=== PATIENT | female | born 1970 | race Caucasian/White ===

== ENCOUNTER 2020-07-21 17:53 | Emergency (ER) | payer OTHER ==
[2020-07-21 18:02] VITALS: TEMP 98.4
[2020-07-21 19:28] LABS: Basophils # (A) 0.1 k/uL (0-0.2); Basophils % (A) 0 %; Eosinophils # (A) 0.1 k/uL (0-0.7); Eosinophils % (A) 1 %; HCT 41.9 % (34.0-46.0); HGB 14.5 gm/dL (11.4-16.0); Lymphocytes # (A) 1.2 k/uL (1.0-4.8); Lymphocytes % (A) 10 %; MCH 30.5 pg (25.0-35.0); MCHC 34.6 g/dL (31.0-37.0); MCV 88.2 fL (80.0-100.0); Mean Platelet Volume 7.5; Monocytes # (A) 0.5 k/uL (0-1.0); Monocytes % (A) 4 %; Neutrophils # (A) 10.6 k/uL (1.3-7.7); Neutrophils % (A) 85 %; Platelet Count 223 k/uL (150-450); RBC 4.74 m/uL (3.80-5.40); RDW 12.5 % (11.5-15.5); WBC 12.5 k/uL (3.8-10.6)
[2020-07-21 19:38] LABS: INR 0.9 (<1.2); Partial Thromboplastin Time 24.6 sec (22.0-30.0); Prothrombin Time 9.6 sec (9.0-12.0)
[2020-07-21 19:43] LABS: African American GFR (CKD) >90 (>60 ml/min/1.73 sqM); Anion Gap 7 mmol/L; Blood Urea Nitrogen 10 mg/dL (7-17); Calcium 9.5 mg/dL (8.4-10.2); Carbon Dioxide 26 mmol/L (22-30); Chloride 104 mmol/L (98-107); Glucose 105 mg/dL (74-99); Non-African American GFR(CKD) >90 (>60 ml/min/1.73 sqM); Potassium 4.8 mmol/L (3.5-5.1); Sodium 137 mmol/L (137-145); Total Protein 7.6 g/dL (6.3-8.2)
[2020-07-21 19:44] LABS: ALT 57 U/L (4-34); AST 99 U/L (14-36); Albumin 4.7 g/dL (3.5-5.0); Alkaline Phosphatase 69 U/L (38-126); Total Bilirubin 0.2 mg/dL (0.2-1.3)
--- NOTE | 2020-07-21 20:20 | XR ---
EXAMINATION TYPE: XR chest 1V DATE OF EXAM: 07/21/2020 COMPARISON: NONE HISTORY: Chest pain TECHNIQUE: FINDINGS: Heart and mediastinum are normal. Lungs are clear. Diaphragm is normal. Bony thorax appears normal. There are chest leads. IMPRESSION: Normal chest
[2020-07-21] MEDS: SODIUM CHLORIDE 0.9% 1,000 ML IV ONE (20:45)
[2020-07-21] MEDS: FAMOTIDINE 20 MG/2 ML VIAL IV STA (20:46)
--- NOTE | 2020-07-21 21:21 | US ---
EXAMINATION TYPE: US abdomen limited DATE OF EXAM: 07/21/2020 COMPARISON: NONE CLINICAL HISTORY: RUQ pain; back pain; pressure. Abdomen pain and N/V x 1 day EXAM MEASUREMENTS: Liver Length: 17.9 cm Gallbladder Wall: 0.2 cm CBD: 0.5 cm Right Kidney: 10.4 x 5.3 x 5.1 cm Pancreas: wnl Liver: measures in upper limits of normal, mildly heterogeneous Gallbladder: mildly hydropic, multiple small mobile echogenic foci Evidence for sonographic Kingston's sign: no CBD: wnl Right Kidney: 1.0 x 0.6 x 0.9cm hyperechoic area mid pole IMPRESSION: Multiple gallstones. No dilated ducts. Gallbladder is large and could relate to gallbladd er dysfunction.
--- NOTE | 2020-07-21 21:49 | ED ---
General Adult HPI - General Chief complaint: Chest Pain Stated complaint: chest pain Time Seen by Provider: 07/21/20 19:39 Source: patient Mode of arrival: wheelchair Limitations: no limitations - History of Present Illness Initial comments: 50-year-old female patient presents to the emergency department today for evaluation of chest pain, shortness of breath, nausea. Patient states symptoms started a couple of hours ago. States it felt like intense chest tightness, like someone punched her in the "solar plexus". States the pain did radiate through to the back. States she did become nauseated and had one episode of vomiting. States that the pain is worsened which took a deep breath. She does report some upper abdominal discomfort as well. Denies any fever or chills. Denies cough or congestion. Denies any personal cardiac history though does have family history of cardiac disease. Has a history of smoking, quit 4 years ago. Does not take any medications currently. No previous abdominal surgeries. Denies any constipation or diarrhea. Patient denies any recent rash, numbness, tingling, dizziness, weakness, hematuria, dysuria, urinary urgency, urinary frequency, headache, visual changes, or any other complaints. - Related Data Allergies Allergy/AdvReac Type Severity Reaction Status Date / Time No Known Allergies Allergy Verified 07/21/20 18:02 Review of Systems ROS Statement: Those systems with pertinent positive or pertinent negative responses have been documented in the HPI. ROS Other: All systems not noted in ROS Statement are negative. Past Medical History Past Medical History: No Reported History History of Any Multi-Drug Resistant Organisms: None Reported Past Surgical History: Tubal Ligation Past Psychological History: No Psychological Hx Reported Smoking Status: Never smoker Past Alcohol Use History: None Reported Past Drug Use History: None Reported General Exam Limitations: no limitations General appearance: alert, in no apparent distress, other (This is a well- developed, well-nourished adult female patient in no acute distress. Vital signs upon presentation are temperature 98.4F, pulse 83, respirations 20, blood pressure 144/86, pulse ox 98% on room air.) Eye exam: Present: normal appearance, PERRL, EOMI. Absent: scleral icterus, conjunctival injection, periorbital swelling ENT exam: Present: normal exam, normal oropharynx, mucous membranes moist Respiratory exam: Present: normal lung sounds bilaterally. Absent: respiratory distress, wheezes, rales, rhonchi, stridor Cardiovascular Exam: Present: regular rate, normal rhythm, normal heart sounds. Absent: systolic murmur, diastolic murmur, rubs, gallop, clicks GI/Abdominal exam: Present: soft, tenderness (Midepigastric and right upper qu adrant tenderness), normal bowel sounds. Absent: distended, guarding, rebound, rigid Neurological exam: Present: alert, oriented X3, CN II-XII intact Psychiatric exam: Present: normal affect, normal mood Skin exam: Present: warm, dry, intact, normal color. Absent: rash Course Vital Signs 07/21/20 07/21/20 17:57 22:23 Temperature 98.4 F Pulse Rate 83 75 Respiratory 20 18 Rate Blood Pressure 144/86 142/75 O2 Sat by Pulse 98 99 Oximetry EKG Findings - EKG Comments: EKG Findings:: EKG obtained at 1806 shows normal sinus rhythm with ventricular rate of 79, P return of a 166, QRS duration 94, QT 392, QTc 449. No evidence of ST elevation or depression. Medical Decision Making - Medical Decision Making 50-year-old female patient presents to emergency department today for evaluation of chest tightness, abdominal discomfort, nausea, vomiting, shortness of breath. Physical examination did reveal midepigastric right upper quadrant tenderness. Lungs are clear to auscultation with good air movement. EKG was normal sinus rhythm with no ST elevation or depression. Chest x-ray negative. Labs reviewed and did reveal white blood cell count at 12.5, neutrophils 10.6. AST 99, ALT 57. Troponin negative. I did do ultrasound of the right upper quadrant which did show multiple gallstones and enlarged gallbladder consistent with bladder dysfunction. I did discuss findings with the patient. She states all symptoms have resolved and she does want to go home. She is given instructions to follow-up with her primary care physician to discuss possible referral to cardiology for stress testing. She is also instructed to follow-up with surgery outpatient for further evaluation of her gallbladder. Return parameters were discussed in detail. She verbalizes understanding and agrees this plan. Case discussed with my attending Dr. Albert. - Lab Data Result diagrams: 07/21/20 19:13 07/21/20 19:13 Lab Results 07/21/20 07/21/20 07/21/20 Range/Units 19:13 19:13 19:13 WBC 12.5 H (3.8-10.6) k/uL RBC 4.74 (3.80-5.40) m/uL Hgb 14.5 (11.4-16.0) gm/dL Hct 41.9 (34.0-46.0) % MCV 88.2 (80.0-100.0) fL MCH 30.5 (25.0-35.0) pg MCHC 34.6 (31.0-37.0) g/dL RDW 12.5 (11.5-15.5) % Plt Count 223 (150-450) k/uL MPV 7.5 Neutrophils % 85 % Lymphocytes % 10 % Monocytes % 4 % Eosinophils % 1 % Basophils % 0 % Neutrophils # 10.6 H (1.3-7.7) k/uL Lymphocytes # 1.2 (1.0-4.8) k/uL Monocytes # 0.5 (0-1.0) k/uL Eosinophils # 0.1 (0-0.7) k/uL Basophils # 0.1 (0-0.2) k/uL PT 9.6 (9.0-12.0) sec INR 0.9 (<1.2) APTT 24.6 (22.0-30.0) sec Sodium 137 (137-145) mmol/L Potassium 4.8 (3.5-5.1) mmol/L Chloride 104 (98-107) mmol/L Carbon Dioxide 26 (22-30) mmol/L Anion Gap 7 mmol/L BUN 10 (7-17) mg/dL Creatinine 0.64 (0.52-1.04) mg/dL Est GFR (CKD-EPI)AfAm >90 (>60 ml/min/1.73 sqM) Est GFR (CKD-EPI)NonAf >90 (>60 ml/min/1.73 sqM) Glucose 105 H (74-99) mg/dL Calcium 9.5 (8.4-10.2) mg/dL Total Bilirubin 0.2 (0.2-1.3) mg/dL AST 99 H (14-36) U/L ALT 57 H (4-34) U/L Alkaline Phosphatase 69 (38-126) U/L Troponin I (0.000-0.034) ng/mL Total Protein 7.6 (6.3-8.2) g/dL Albumin 4.7 (3.5-5.0) g/dL 07/21/20 Range/Units 19:13 WBC (3.8-10.6) k/uL RBC (3.80-5.40) m/uL Hgb (11.4-16.0) gm/dL Hct (34.0-46.0) % MCV (80.0-100.0) fL MCH (25.0-35.0) pg MCHC (31.0-37.0) g/dL RDW (11.5-15.5) % Plt Count (150-450) k/uL MPV Neutrophils % % Lymphocytes % % Monocytes % % Eosinophils % % Basophils % % Neutrophils # (1.3-7.7) k/uL Lymphocytes # (1.0-4.8) k/uL Monocytes # (0-1.0) k/uL Eosinophils # (0-0.7) k/uL Basophils # (0-0.2) k/uL PT (9.0-12.0) sec INR (<1.2) APTT (22.0-30.0) sec Sodium (137-145) mmol/L Potassium (3.5-5.1) mmol/L Chloride (98-107) mmol/L Carbon Dioxide (22-30) mmol/L Anion Gap mmol/L BUN (7-17) mg/dL Creatinine (0.52-1.04) mg/dL Est GFR (CKD-EPI)AfAm (>60 ml/min/1.73 sqM) Est GFR (CKD-EPI)NonAf (>60 ml/min/1.73 sqM) Glucose (74-99) mg/dL Calcium (8.4-10.2) mg/dL Total Bilirubin (0.2-1.3) mg/dL AST (14-36) U/L ALT (4-34) U/L Alkaline Phosphatase (38-126) U/L Troponin I <0.012 (0.000-0.034) ng/mL Total Protein (6.3-8.2) g/dL Albumin (3.5-5.0) g/dL - Radiology Data Radiology results: report reviewed, image reviewed One view x-ray of the chest is obtained. Report was reviewed in its entirety. Impression by Dr. Barajas shows normal chest. Ultrasound of the right upper quadrant was obtained. Report was reviewed in its entirety. Impression by Dr. Barajas shows multiple gallstones. No dilated ducts. Gallbladder is large and could relate to gallbladder dysfunction. Disposition Clinical Impression: Chest pain, Abdominal pain, Cholelithiasis, Dysfunctional gallbladder Disposition: HOME SELF-CARE Condition: Good Instructions (If sedation given, give patient instructions): Chest Pain (ED), Gallstones (ED), Abdominal Pain (ED) Additional Instructions: Follow low-fat diet. Follow-up through primary care physician for recheck in 1- 2 days. Discuss possible follow-up with cardiology for stress test. Call surgeon for an appointment due to gallbladder dysfunction and gallstones. Return for any new, worsening, or concerning symptoms. Is patient prescribed a controlled substance at d/c from ED?: No Referrals: Vladislav Rojas DO [Primary Care Provider] - 1-2 days Mukesh Arguelles DO [Doctor of Osteopathic Medicine] - 1-2 days Time of Disposition: 21:51
[2020-07-21 22:23] VITALS: BP 142/75; PULSE 75; RESP 18
== END 2020-07-21 22:36 | disposition home or self-care (01) ==
LOC: EC 17:53
DX: K80.20 Calculus of gallbladder without cholecystitis without obstruction (principal); R07.89 Other chest pain; R06.02 Shortness of breath
CPT/HCPCS: 36415; 71045; 76705; 80053; 84484; 85025; 85610; 85730; 93005; 96374; 99285

== ENCOUNTER → 2020-09-11 | Outpatient (CLI) | payer OTHER ==
[2020-09-11 14:48] VITALS: BP 122/82; PULSE 71; RESP 16; TEMP 98.9
--- NOTE | 2020-09-11 15:45 | P.GSHP ---
History of Present Illness H&P Date: 09/11/20 Chief Complaint: invasive ductal cancer left breast Lucero is a 50 year old white female seen in consultation for Dr. Rojas with a diagnosis of a biopsy-proven invasive ductal carcinoma at 2 sites in the left breast. The patient was able to feel this approximately 2 months ago. The patient was due for her annual exam and a bilateral mammogram was performed. In the left breast 2 areas of concern were identified one at 9:00 and one at 8:00. Both areas revealed invasive ductal carcinoma grade 2. These are ER/IN positive HER-2/la equivocal Had a mammogram for approximately 5 years. She is not complaining of any nipple discharge. Since the biopsy she has some mild dimpling at the site of the biopsy. She had never had a breast biopsy in the past. She has no history of any trauma or infection in the breast. Caffeine: 2 cups of coffee per day/ diet pepsi 1 liter/day Nicotine: Stopped 4 years ago he used to smoke a pack per day for 3o years chocolate: none BCP: 14 years hormones: none Family history: paternal grandfather: lung cancer smoker History: Menarche: 13 [id number], first born at 31; bresat fed: yes menopause: Continue regular rate Surgical history: tubaligation gallbladder to be removed on Medical history: Negative Social history: Nicotine: Former smoker stopped 40 years ago Alcohol: Stopped 5 years ago Drugs:none - Constitutional Constitutional: Denies chills, Denies fever - EENT Eyes: bilateral blurred vision, denies pain Ears: deny: decreased hearing, tinnitus Ears, nose, mouth and throat: Reports headache, Denies sore throat - Breasts Breasts: bilateral: as per HPI - Cardiovascular Cardiovascular: Denies chest pain, Denies shortness of breath - Respiratory Respiratory: Reports as per HPI - Gastrointestinal Comment: gallbladder disease Gastrointestinal: Denies abdominal pain, Denies diarrhea, Denies nausea, Denies vomiting - Genitourinary (Female) Genitourinary: Denies dysuria, Denies hematuria - Menstruation Menstruation: Reports period normal - Musculoskeletal Musculoskeletal: Denies myalgias - Integumentary Comment: psoriasis Integumentary: Denies pruritus, Denies rash - Neurological Neurological: Denies numbness, Denies weakness - Psychiatric Psychiatric: Denies anxiety, Denies depression - Endocrine Endocrine: Denies fatigue, Denies weight change - Hematologic/Lymphatic Comment: none - Allergic/Immunologic Allergic/Immunologic: Reports as per HPI Past Medical History Past Medical History: Thyroid Disorder Additional Past Medical History / Comment(s): psoriasis; elevated liver enzyme level; History of Any Multi-Drug Resistant Organisms: None Reported Past Surgical History: Tubal Ligation Past Anesthesia/Blood Transfusion Reactions: No Reported Reaction Past Psychological History: No Psychological Hx Reported Smoking Status: Former smoker Past Alcohol Use History: None Reported Additional Past Alcohol Use History / Comment(s): Former smoker Past Drug Use History: None Reported Medications and Allergies Home Medications Medication Instructions Recorded Confirmed Type Aspirin/Acetaminophen/Caffeine 1 each PO DAILY PRN 09/11/20 09/11/20 History [Excedrin Extra Strength Caplet] Allergies Allergy/AdvReac Type Severity Reaction Status Date / Time No Known Allergies Allergy Verified 09/11/20 14:37 Surgical - Exam Vital Signs Temp Pulse Resp BP Pulse Ox 98.9 F 71 16 122/82 97 09/11/20 14:42 09/11/20 14:42 09/11/20 14:42 09/11/20 14:42 09/11/20 14:42 BMI 36 - General well developed, well nourished, no distress - Eyes normal ocular movement - ENT no hearing loss, no congestion - Neck no masses, trachea midline - Respiratory normal respiratory effort, clear to auscultation - Cardiovascular Heart Sounds: normal: S1, S2 - Abdomen Abdomen: soft, non tender, no guarding, no rigid, no rebound - Integumentary normal turgor - Neurologic no disoriented, no combative - Musculoskeletal normal gait - Psychiatric oriented to time, oriented to person, oriented to place, speech is normal, memory intact Breast Exam: BRA: 38C inspection: Bilateral grade 3 ptosis Palpation: Right breast: Multiple positional exam fibrocystic changes no dominant masses or nodules of concern Axilla: No adenopathy of concern Left breast: Ecchymosis related to recent core biopsy/nodularity at the inner midportion of the breast, no other dominant masses or nodules of concern Left axilla: No adenopathy of concern Results Mammogram reviewed with Dr. Valencia Assessment and Plan Assessment: Impression: Multifocal left breast cancer/both stage IA invasive ductal Plan: 1. Appointment with plastic surgery 2. Genetic counseling 3. Presentation of case at tumor board The patient has been given options of bilateral mastectomy plus or minus reconstruction to lumpectomy and sentinel node biopsy and radiation therapy. At this time she is most interested in a mastectomy. She is going to have genetic testing performed to determine if she would like to have bilateral mastectomies. We have also discussed sentinel node biopsy possible axillary node dissection. She understands and will follow up in 2 weeks after seeing the genetic counselor and an appointment with plastic surgery. The patient is scheduled to undergo a cholecystectomy in 2 days. She is going to proceed with this. I seen the patient in conjunction with her mother, sister, and daughter. Cc: Dr. Rojas
== END | disposition home or self-care (01) ==
LOC: WWCWWP 14:15
PROVIDERS: ATTEND Surgery
DX: Z53.9 Procedure and treatment not carried out, unspecified reason (principal)

== ENCOUNTER → 2020-09-27 | Outpatient (CLI) | payer OTHER ==
[2020-09-27 13:19] VITALS: BP 138/92; PULSE 67; RESP 18; TEMP 99.2
--- NOTE | 2020-09-27 13:25 | P.PN ---
Subjective Progress Note Date: 09/27/20 Principal diagnosis: left breast cancer Lucero is a 50 year old white female seen in consultation for Dr. Rojas with a diagnosis of a biopsy-proven invasive ductal carcinoma at 2 sites in the left breast. The patient was able to feel this approximately 2 months ago. The patient was due for her annual exam and a bilateral mammogram was performed. In the left breast 2 areas of concern were identified one at 9:00 and one at 8:00. Both areas revealed invasive ductal carcinoma grade 2. These are ER/CT positive HER-2/la equivocal Had a mammogram for approximately 5 years. She is not complaining of any nipple discharge. Since the biopsy she has some mild dimpling at the site of the biopsy. She had never had a breast biopsy in the past. She has no history of any trauma or infection in the breast. The patient's case was presented at tumor board. There was discussion about genetic testing but the patient opted not to have this performed. The patient was seen by Dr. Roberto from plastic surgery and is planning to proceed with a bilateral skin sparing mastectomy and subpectoral implant reconstruction. She will have her left breast sentinel node biopsy performed with possible axillary node dissection. Caffeine: 2 cups of coffee per day/ diet pepsi 1 liter/day Nicotine: Stopped 4 years ago he used to smoke a pack per day for 3o years chocolate: none BCP: 14 years hormones: none Family history: paternal grandfather: lung cancer smoker History: Menarche: 13 [id number], first born at 31; bresat fed: yes menopause: Continue regular rate Surgical history: tubaligation gallbladder to be removed on Medical history: Negative Social history: Nicotine: Former smoker stopped 40 years ago Alcohol: Stopped 5 years ago Drugs:none - Constitutional Constitutional: Denies chills, Denies fever - EENT Eyes: bilateral blurred vision, denies pain Ears: deny: decreased hearing, tinnitus Ears, nose, mouth and throat: Reports headache, Denies sore throat - Breasts Breasts: bilateral: as per HPI - Cardiovascular Cardiovascular: Denies chest pain, Denies shortness of breath - Respiratory Respiratory: Reports as per HPI - Gastrointestinal Comment: gallbladder disease Gastrointestinal: Denies abdominal pain, Denies diarrhea, Denies nausea, Denies vomiting - Genitourinary (Female) Genitourinary: Denies dysuria, Denies hematuria - Menstruation Menstruation: Reports period normal - Musculoskeletal Musculoskeletal: Denies myalgias - Integumentary Comment: psoriasis Integumentary: Denies pruritus, Denies rash - Neurological Neurological: Denies numbness, Denies weakness - Psychiatric Psychiatric: Denies anxiety, Denies depression - Endocrine Endocrine: Denies fatigue, Denies weight change - Hematologic/Lymphatic Comment: none - Allergic/Immunologic Allergic/Immunologic: Reports as per HPI Objective - Constitutional General appearance: Present: cooperative - EENT Eyes: Present: EOMI - Neck Neck: Present: normal ROM - Respiratory Respiratory: bilateral: CTA - Cardiovascular Heart sounds: normal: S1, S2 - Integumentary Integumentary: Present: normal turgor - Musculoskeletal Musculoskeletal: Present: gait normal - Psychiatric Psychiatric: Present: A&O x's 3, appropriate affect, intact judgment & insight - Additional findings Additional findings: Breast examination: Prior: 30 8C Inspection: Bilateral grade 3 ptosis Palpation: Right breast: Multiple positional exam fibrocystic changes no dominant masses or nodules of concern Right axilla: No adenopathy of concern Left breast: Ecchymosis related to recent core biopsy/nodularity in her midportion of the breast and other dominant masses or nodules of concern Left axilla: No adenopathy of concern Assessment and Plan Assessment: Impression: 1. Multifocal left breast cancer/both stage IA invasive ductal 2. Patient opted not to undergo genetic testing 3. Patient opted not to see lymphedema specialist preoperative from measurements 4. Patient did see plastic surgery Plan: 1. Bilateral skin sparing mastectomies with subpectoral implant reconstruction. Left breast sentinel node injection with sentinel node biopsy, possible axillary node dissection. The patient was seen in conjunction with her sister, mother, and daughter. The patient and her family had been given surgical options on prior visit and she has opted for the above. Risks of the procedure which include bleeding, infection, reaction to the anesthetic were discussed with the patient. She understands and wishes to proceed. She also understands that if the sentinel node injection does not travel. Would be injection of methylene blue and the risk of this could be skin necrosis. With axillary surgery the risks include but are not limited to bleeding, infection, reaction to the anesthetic. Additionally possible injury to the thoracodorsal and long thoracic nerves.
== END | disposition home or self-care (01) ==
LOC: WWCWWP 12:51
PROVIDERS: ATTEND Surgery
DX: C50.912 Malignant neoplasm of unspecified site of left female breast (principal); Z17.0 Estrogen receptor positive status [ER+]; Z87.891 Personal history of nicotine dependence

== ENCOUNTER 2020-10-16 07:13 | Observation (INO) | payer OTHER ==
[2020-10-10 16:09] VITALS: BMI 36.0
[~2020-10-16 07:13] MED LIST: DEXAMETHASONE SOD PHOSPHATE 4 MG/ML 1 ML VIAL IV ONE; MIDAZOLAM 2 MG/2 ML VIAL IV PRN; ONDANSETRON 4 MG/2 ML VIAL IVP ONE; Pre Op ABX Message 1 EACH MISC MISCELLANE ONE; SCOPOLAMINE 1.5MG/72HR PATCH TRANSDERM ONE
[2020-10-16] MEDS: LACTATED RINGERS 1,000 ML IV SCH (07:44)
[2020-10-16] MEDS ORDERED: ALPRAZolam 0.5 MG TAB ONE (07:48)
[2020-10-16] MEDS ORDERED: ALPRAZolam 0.5 MG TAB PO ONE (07:49)
[2020-10-16] MEDS: HEPARIN SODIUM,PORCINE/PF 5,000 UNIT/0.5 ML SYRINGE SQ PRN ×2 (08:20→08:30)
[2020-10-16] MEDS ORDERED: LIDOCAINE 1% INJ 10MG/ML (20 ML MDV) ONE (08:36)
[2020-10-16] MEDS ORDERED: fentaNYL (PF) 50 MCG/ML 2 ML AMP ONE (08:36)
[2020-10-16] MEDS ORDERED: MIDAZOLAM 2 MG/2 ML VIAL ONE (08:36)
[2020-10-16] MEDS ORDERED: SUCCINYLCHOLINE CHLORIDE 100 MG/5 ML SYR IV ONE (08:36)
[2020-10-16] MEDS ORDERED: ePHEDrine SULFATE/0.9% NACL/PF 50 MG/5 ML SYRINGE IV ONE (08:36)
[2020-10-16] MEDS ORDERED: PROPOFOL 10 MG/ML 20 ML VIAL IV ONE (08:36)
[2020-10-16] MEDS ORDERED: METHYLENE BLUE 10 MG/ML (10 ML VIAL) INJ ONE (09:10)
--- NOTE | 2020-10-16 09:14 | P.NAPBC ---
NAPBC Queries - NAPBC Queries Was patient's case review presented at [facility] tumor board? If no, comment.: Yes Was patient's pathology reviewed at [facility]? If no, comment.: Yes Was breast conservation surgery offered? If no, comment.: Yes Was sentinel node biopsy offered? If no, comment.: Yes Was diagnosis confirmed by percutaneous core biopsy? If no, comment.: Yes Is patient mastectomy patient?: Yes Was a preop referral to reconstructive surgeon offered?: Yes Clinical Stage: multifocal left breast cancer, stage IA
[2020-10-16] MEDS ORDERED: LACTATED RINGERS 1,000 ML IV ONE ×3 (10:54→13:27)
[2020-10-16] MEDS ORDERED: HYDROmorphone 1 MG/ML 1 ML SYRINGE IVP PRN (11:09)
[2020-10-16] MEDS ORDERED: NALOXONE 0.4 MG/ML 1 ML VIAL IV PRN (11:09)
--- NOTE | 2020-10-16 11:09 | P.OP ---
Date of Procedure: 10/16/20 Preoperative Diagnosis: Left breast multifocal invasive ductal carcinoma Postoperative Diagnosis: Same Procedure(s) Performed: Bilateral skin sparing mastectomy, left sentinel node mapping with methylene blue, sentinel node biopsy; bilateral subpectoral museum specialist placement by Dr. Roberto Anesthesia: RA Surgeon: Angely Grant Estimated Blood Loss (ml): 30 IV fluids (ml): 900 Pathology: other (Bilateral breast, left axillary lymph nodes) Condition: stable Disposition: floor Indications for Procedure: Left breast invasive ductal carcinoma Operative Findings: Dense breast tissue Description of Procedure: The patient is a 50-year-old white female diagnosed with multifocal left breast invasive ductal carcinoma. After discussion she has opted for bilateral skin sparing mastectomy with left sentinel node mapping/biopsy possible axillary node dissection. In addition she will have bilateral subpectoral museum specialist placement. In the preoperative area radioactive tracer was injected in the left periareolar region. The patient was brought to the operative suite and following induction of anesthesia the neoprobe was used to evaluate the left axilla. No increased radioactivity identified. Therefore, methylene blue tracer was placed. Approximately 10 mL of 50% methylene blue was injected into the periareolar area and the breast was massaged for approximately 5 minutes. Following this the right and left breast as well as the left axilla were prepped and draped in a sterile fashion. The right breast was approached initially. A circumareolar incision was made and circumferential skin flaps were developed. This was carried down to the pectoralis major muscle. The breast was removed from medial to lateral using electrocautery device as well as the Harmonic scalpel. A short suture was placed superiorly, and a long suture was placed laterally. Following this Dr. Roberto came into the room to place a subpectoral implant. The left breast was approached. Circumareolar incision was placed. Dissection was performed circumferentially down to the pectoralis major muscle. The breast was carefully dissected from the chest wall. The breast was removed and superiorly a short suture was placed and laterally a long suture was was placed for orientation. The left axilla was approached. Using the neoprobe minimal radioactivity was noted in the area. Two palpable nodes were identified and removed. One lymph node which had slight increased radioactivity was identified and removed. The 10 second count after removal on this was 366. The background axillary count was minimal. After we assured that hemostasis was attained Dr. Roberto proceeded to place a subpectoral museum specialist.
--- NOTE | 2020-10-16 11:59 | NM ---
EXAMINATION TYPE: NM sentinel node injection DATE OF EXAM: 10/16/2020 COMPARISON: NONE INDICATION: Abnormal mammogram. Informed consent was obtained. A timeout was performed. The area around the left nipple was cleansed with alcohol. In a single dose, a total of 511 uCi Emma hnetium 99m Tilmanocept was injected. The patient tolerated the procedure very well. IMPRESSIONS: 1. Successful injection for sentinel node evaluation.
[2020-10-16] MEDS: HYDROmorphone 0.5 MG/0.5 ML SYRINGE IVP PRN ×3 (12:19→13:10)
[2020-10-16] MEDS: ONDANSETRON 4 MG/2 ML VIAL IVP PRN (15:30)
[2020-10-16] MEDS: HEPARIN SODIUM,PORCINE/PF 5,000 UNIT/0.5 ML SYRINGE SQ SCH (17:18)
[2020-10-16] MEDS: METOCLOPRAMIDE 5 MG/ML 2 ML VIAL IVP SCH (18:27)
[2020-10-16] MEDS: DEXTROSE 5%-0.45% NACL 1,000 ML IV SCH (18:27)
--- NOTE | 2020-10-16 18:59 | OP ---
OPERATIVE REPORT DATE OF SURGERY: 10/16/2020. SURGEON: Deric Steele M.D. PREOPERATIVE DIAGNOSIS: 1. Acquired loss of right and left breast. 2. Left breast cancer. POSTOPERATIVE DIAGNOSIS: 1. Acquired loss, right and left breast. 2. Left breast cancer. OPERATIVE PROCEDURE: 1. Immediate reconstruction right breast following mastectomy with insertion of tissue coin machine assembler and subsequent outpatient expansion. 2. Immediate reconstruction left breast following mastectomy with insertion of tissue coin machine assembler and subsequent outpatient expansion. 3. Implantation of reconstructive graft for right and left breast reconstruction. OPERATIVE INDICATIONS: The patient is a 50-year-old female with left breast cancer. She was referred to my care, as the patient plans to undergo bilateral mastectomy procedures and desires immediate reconstruction with the surgery. The patient was seen and evaluated in consultation and has elected to proceed with a tissue coin machine assembler style reconstruction technique. She understands the staged nature of breast reconstructive surgery and specifics of potential risks and complications related to surgery, including but not limited to hematoma, seroma, postoperative infection, wound healing problems, among others. She has requested I perform today's surgery. OPERATIVE PROCEDURE SUMMARY: The patient was seen in the preoperative area, markings made, procedure reviewed, all questions answered. She was transported to the operating room, where she was placed in supine position. Following induction of general endotracheal anesthesia, the patient was prepped and draped in usual fashion. Dr. Grant and her surgical team then proceeded with the right simple mastectomy. Once that was completed, I entered the room and initiated the right breast reconstruction while Dr. Grant proceeded with the left simple mastectomy and left sentinel lymph node dissection procedures. The patient's right-sided mastectomy wound was open with no active bleeding. Pectoralis muscle was identified where it joined the chest wall laterally. Loose connective tissue divided with cautery here allowing entry into the potential plane between the pectorals major and minor muscles which was bluntly developed. Medial attachment fibers of the pectoralis major muscle to ribs were released with cautery but not sternal attachments. All inferior attachments to the rib structures were released with cautery. The pectoralis major muscle alone was not sufficient for reconstructive coverage of an coin machine assembler. Inferior medially rectus abdominis muscle and fascia inferolaterally external abdominal oblique muscle and fascia and laterally serratus anterior muscle and fascia were all elevated with cautery dissection through this approach. Once sufficient size submuscular reconstructive pocket was developed, hemostasis was maintained with cautery. The site was packed open with saline-moistened laparotomy sponges. Once the left-sided mastectomy and sentinel lymph node procedures were completed, I initiated left breast reconstruction. On the left side, the pectoralis major muscle was identified where it joined the chest wall. Loose areolar connective tissue divided with cautery here and then this allowed entry into the potential plane between the pectoralis major and minor muscles which was bluntly developed. Medial attachment fibers of the pectoralis major muscle to ribs and all inferior attachment fibers were released with cautery. Sternal attachments remained intact. Again, sufficient muscle coverage required recruitment of additional muscle groups. Inferomedially rectus abdominis muscle and fascia inferolaterally external abdominal oblique muscle and fascia and laterally serratus anterior muscle and fascia were all elevated through this approach. Once a sufficient sized submuscular pocket was created in a symmetrical fashion to the right, dissection stopped. Irrigation was performed. Hemostasis was excellent. The cavities were sized from each side. Minor adjustments were made for symmetry purposes. Tissue expanders were now opened onto the field after first changing gloves. Both expanders measured 450 mL in volume and reference #133 S-FX-12-T. There were made by the [employer], model 133 SFX. The serial number for the right-sided device was [id number] and the serial number for the left-sided device was [id number]. The expanders were only handled by the surgeon. All air was extracted from each coin machine assembler. Each coin machine assembler was initially filled to a volume of 100 mL using normal saline. The expanders were positioned in the reconstructive cavity on the left, then right side. The position was assured under direct vision. The muscle flap tissue on either side could not be approximated without significant tension. Therefore SurgiMend reconstructive graft measuring 10 x 15 cm thin and fenestrated was opened onto the field. The graft was revitalized with room-temperature saline. Once ready, the graft was divided in two equal portions and placed on each side, spanning where the muscle could not be approximated due to tension. The graft was placed directly over the coin machine assembler and deep to the muscle and then the graft was inset to the muscle tissue using interrupted 3-0 Vicryl on each side. Complete coverage of each coin machine assembler was now obtained. Additional saline was added to each coin machine assembler, making the final volume 200 mL, which appeared optimal based on muscle and graft tension. Nineteen round Slava drains were inserted in the field, one for the right side and two on the left. The second drain on the left was placed in the axillary lymph node excision area. All drains were brought out through separate stab incisions in either the left or right anterior lateral chest wall and sutured in place with 2-0 Prolene. They were cut to appropriate length. The mastectomy procedures had been completed through a circumareolar approach. The closure of the mastectomy wound was now performed using 2- 0 Prolene deep dermal pursestring sutures followed by finer approximation of the dermis using interrupted 4-0 Monocryl and then completing the skin closure with mg. Drains were connected to closed-bulb suction and patent. Surgical chau were cleansed with saline and dried. Postoperative bandages were placed using Kerlix squares secured with 3M Medipore tape. The patient was then awakened from her anesthetic, extubated in the operating room and transferred to the recovery room in good condition with stable vital signs. The estimated blood loss was 50 mL. There were no complications. The final fill for each coin machine assembler was 200 mL. MMODL / IJN: [id number] /
[2020-10-17] MEDS: HEPARIN SODIUM,PORCINE/PF 5,000 UNIT/0.5 ML SYRINGE SQ SCH ×3 (01:51→15:54)
[2020-10-17] MEDS: DEXTROSE 5%-0.45% NACL 1,000 ML IV SCH ×3 (01:52→18:07)
[2020-10-17 05:30] LABS: Basophils % (A) 0 %; Eosinophils # (A) 0.1 k/uL (0-0.7); Eosinophils % (A) 0 %; HCT 36.2 % (34.0-46.0); HGB 12.3 gm/dL (11.4-16.0); Lymphocytes # (A) 1.9 k/uL (1.0-4.8); Lymphocytes % (A) 14 %; MCH 31.1 pg (25.0-35.0); MCHC 33.9 g/dL (31.0-37.0); MCV 91.8 fL (80.0-100.0); Mean Platelet Volume 7.9; Monocytes # (A) 0.8 k/uL (0-1.0); Monocytes % (A) 6 %; Neutrophils # (A) 11.1 k/uL (1.3-7.7); Neutrophils % (A) 79 %; Platelet Count 200 k/uL (150-450); RBC 3.95 m/uL (3.80-5.40); RDW 13.1 % (11.5-15.5)
[2020-10-17] MEDS: METOCLOPRAMIDE 5 MG/ML 2 ML VIAL IVP SCH ×3 (06:17→18:07)
[2020-10-17] MEDS: ONDANSETRON 4 MG/2 ML VIAL IVP PRN ×2 (08:49→19:49)
[2020-10-17] MEDS ORDERED: ACETAMINOPHEN IV (For NPO) 1,000 MG in EMPTY BAG 1 BAG IVPB STA (09:29)
--- NOTE | 2020-10-17 11:25 | P.PN ---
Subjective Progress Note Date: 10/17/20 Principal diagnosis: Left breast invasive ductal carcinoma multifocal Patient is postop day #1 from bilateral skin sparing mastectomies, left sentinel node biopsy, bilateral subpectoral implant placement Lucero is a 50-year-old white female postop day #1 from bilateral skin sparing mastectomies, left sentinel node biopsy, and bilateral subpectoral implant placement. Postoperatively she has done well however she has had nausea and vomiting and has not been able to tolerate eating at this time. Her VICKIE output is serous in nature. VICKIE: 5 mL, VICKIE.B: 50 mL, VICKIE: 20 mL. Objective - Vital Signs Vital signs: Vital Signs Temp 99.0 F 10/17/20 08:20 Pulse 79 10/17/20 08:20 Resp 10 L 10/17/20 08:20 BP 119/76 10/17/20 08:20 Pulse Ox 93 L 10/17/20 08:20 Intake & Output 10/16/20 10/17/20 10/17/20 18:59 06:59 18:59 Intake Total 2049 60 Output Total 1305 1475 Balance 745 -1415 Weight 97.9 kg Intake: IV 2049 Oral 60 Output: Drainage 95 75 VICKIE A 20 5 VICKIE B 35 50 VICKIE C 40 20 Urine 1135 1400 Estimated Blood Loss 75 Other: Voiding Method Toilet # Voids 1 - Constitutional General appearance: Present: cooperative - EENT Eyes: Present: EOMI ENT: Present: hearing grossly normal - Respiratory Respiratory: bilateral: CTA - Cardiovascular Heart sounds: normal: S1, S2 - Integumentary Integumentary Comment(s): Incisions bilateral clean and dry, no evidence of any infection - Psychiatric Psychiatric: Present: A&O x's 3, appropriate affect, intact judgment & insight - Labs CBC & Chem 7: 10/17/20 05:00 Labs: Abnormal Lab Results - Last 24 Hours (Table) 10/17/20 Range/Units 05:00 WBC 14.0 H (3.8-10.6) k/uL Neutrophils # 11.1 H (1.3-7.7) k/uL Assessment and Plan Assessment: Impression: 1. Postop nausea and vomiting, postop day #1 2. Leukocytosis, white count 14 Plan: 1. Nausea and vomiting is improving suspect this is related to anesthesia 2. Probable discharge home tomorrow 3. Leukocytosis felt to be reactive in nature no clinical evidence of infection at this time
[2020-10-17] MEDS ORDERED: HYDROcodone/APAP 5-325MG 1 EACH TAB PO PRN (11:59)
[2020-10-17] MEDS ORDERED: ACETAMINOPHEN TAB 500 MG TAB PO PRN (16:40)
[2020-10-17] MEDS: ACETAMINOPHEN TAB 500 MG TAB PO PRN (17:10)
[2020-10-17] MEDS: LACTATED RINGERS 1,000 ML IV SCH (20:23)
[2020-10-18] MEDS: METOCLOPRAMIDE 5 MG/ML 2 ML VIAL IVP SCH ×2 (00:05→05:58)
[2020-10-18] MEDS: HEPARIN SODIUM,PORCINE/PF 5,000 UNIT/0.5 ML SYRINGE SQ SCH ×2 (00:05→08:11)
[2020-10-18] MEDS: DEXTROSE 5%-0.45% NACL 1,000 ML IV SCH ×2 (03:18→05:58)
[2020-10-18 04:02] VITALS: TEMP 98.7
[2020-10-18] MEDS: ACETAMINOPHEN TAB 500 MG TAB PO PRN ×2 (04:05→10:01)
[2020-10-18 08:29] VITALS: BP 131/85; PULSE 86; RESP 18
--- NOTE | 2020-10-18 08:36 | P.PN ---
Subjective Progress Note Date: 10/18/20 Principal diagnosis: Left breast invasive ductal carcinoma multifocal Patient is postop day #2 from bilateral skin sparing mastectomies, left sentinel node biopsy, bilateral subpectoral implant placement Lucero is a 50-year-old white female postop day #2 from bilateral skin sparing mastectomies, left sentinel node biopsy, and bilateral subpectoral implant placement. Postoperatively she has done well however she has had nausea and vomiting and has not been able to tolerate eating on her first postoperative day. This has improved and she is tolerating her diet at this time. Her VICKIE output is serous in nature. VICKIE output is 70 mL total. Objective - Vital Signs Vital signs: Vital Signs Temp 98.7 F 10/18/20 08:10 Pulse 86 10/18/20 08:10 Resp 18 10/18/20 08:10 BP 131/85 10/18/20 08:10 Pulse Ox 95 10/18/20 08:10 Intake & Output 10/17/20 10/18/20 10/18/20 18:59 06:59 18:59 Intake Total 740 222 Output Total 100 145 Balance 640 77 Intake: Oral 740 222 Output: Drainage 100 145 VICKIE A 40 85 VICKIE B 40 35 VICKIE C 20 25 Other: Voiding Method Toilet Toilet # Voids 1 - Constitutional General appearance: Present: average body habitus - EENT Eyes: Present: EOMI ENT: Present: hearing grossly normal - Neck Neck: Present: normal ROM - Respiratory Respiratory: bilateral: CTA - Cardiovascular Rhythm: regular Heart sounds: normal: S1, S2 - Gastrointestinal General gastrointestinal: Present: soft - Integumentary Integumentary Comment(s): Incisions clean and dry There is some methylene blue staining at the border of the left lateral periareolar incision, this does not appear to be necrotic or infected - Labs CBC & Chem 7: 10/17/20 05:00 Assessment and Plan Assessment: Impression: 1. Postop nausea and vomiting resolved, patient tolerating diet at this time Plan: 1. Nausea and vomiting is improving suspect this was related to anesthesia 2. Discharge home 3. No clinical evidence of infection at this time
--- NOTE | 2020-10-18 08:38 | P.DS ---
Providers Date of admission: 10/17/20 06:18 Attending physician: Angely Grant Primary care physician: Vladislav Rojas Plan - Discharge Summary Discharge Rx Participant: No New Discharge Prescriptions: No Action Aspirin/Acetaminophen/Caffeine [Excedrin Extra Strength Caplet] 1 each PO DAILY PRN PRN Reason: Headache Discharge Medication List Aspirin/Acetaminophen/Caffeine [Excedrin Extra Strength Caplet] 1 each PO DAILY PRN 09/11/20 [History] Follow up Appointment(s)/Referral(s): Angely Grant MD [STAFF PHYSICIAN] - 10/25/20 4:00 pm Deric Steele MD [STAFF PHYSICIAN] - 1 Week Activity/Diet/Wound Care/Special Instructions: pt's norco script is in chart Dr. Sun del real wants patient to record drainage output, pt has jorge handout that she can keep track on. Do not drive if taking narcotic pain medication Discharge patient drain management, drainage and recorded JORGE output twice a day and as needed Discharge Disposition: HOME SELF-CARE
== END 2020-10-18 11:40 | disposition home or self-care (01) ==
LOC: OR 07:13 → 6PED 12:22 → OR 10-17 06:18 → 6PED 10-17 06:18
PROVIDERS: ADMIT Surgery; ATTEND Surgery
DX: C50.312 Malignant neoplasm of lower-inner quadrant of left female breast (principal); C77.3 Secondary and unspecified malignant neoplasm of axilla and upper limb lymph nodes; Z17.0 Estrogen receptor positive status [ER+]; F17.210 Nicotine dependence, cigarettes, uncomplicated; E07.9 Disorder of thyroid, unspecified; Z98.51 Tubal ligation status; Z90.49 Acquired absence of other specified parts of digestive tract; Z83.3 Family history of diabetes mellitus; Z82.49 Family history of ischemic heart disease and other diseases of the circulatory system; Z80.1 Family history of malignant neoplasm of trachea, bronchus and lung
CPT/HCPCS: 19303; 19357; 38500; 81025; 85025; 88342; 88307; 88309; 88341; 38792; G0378 ×2; C1889; C1763; A9520; J2250; J1100; J2765 ×3; J0690; J2405 ×2; J2001; Q9968; J3010; J1170 ×2; J0131; J0330; J2704; J1644 ×3

== ENCOUNTER → 2020-10-25 | Outpatient (CLI) | payer OTHER ==
[2020-10-25 16:26] VITALS: BP 115/63; PULSE 74; RESP 16; TEMP 98.9
--- NOTE | 2020-10-25 17:08 | P.PN ---
Progress Note - Text Progress Note Date: 10/25/20 Lucero status post bilateral mastectomy with left sentinel node biopsy. Right breast did not reveal any tumor. Left breast reveal complete excision of tumor. 3 axillary nodes removed all had tumor present. I've discussed this with medical oncology/Dr. Corona and Dr. Rascon. Her case will be presented at tumor board. I have talked to the patient about completion axillary dissection. She would like to avoid this if possible. She is healing well from the surgery. VICKIE output is serous in nature each drain is approximately 40-50 mL per day. She has an appointment with Dr. Keysha ruby tomorrow. Physical examination: Lungs: Clear Heart: Regular rate and rhythm Incision bilateral clean and dry VICKIE drain all 3 serous in nature Impression/Plan: 1. Bilateral mastectomy with subpectoral implant placement healing well or evidence of infection 2. Axillary node biopsy left axilla 3 nodes positive for tumor 3. Repeat presentation of case at tumor board 4. Appointment with medical oncology 5. Appointment with radiation oncology 6. PET scan ordered 7. Patient to follow. After PET scan CC: Dr. Rojas
== END ==
LOC: WWCWWP 15:53
PROVIDERS: ATTEND Surgery
DX: Z09 Encounter for follow-up examination after completed treatment for conditions other than malignant neoplasm (principal); Z90.13 Acquired absence of bilateral breasts and nipples; Z98.82 Breast implant status

== ENCOUNTER → 2020-11-09 | Outpatient (CLI) | payer OTHER ==
--- NOTE | 2020-11-11 21:07 | PE ---
EXAMINATION TYPE: PET CT fusion skull to thigh DATE OF EXAM: 11/09/2020 COMPARISON: NONE HISTORY: Left-sided breast cancer invasive ductal carcinoma on biopsy September 04, 2020 with bilateral ma stectomies October 16, 2020 TECHNIQUE: Following the intravenous administration of 13.19 mCi of F-18 FDG, whole body images are performed from the skull base to the midthigh. Images are reviewed on the computer in the coronal, a xial, and sagittal planes. Reconstructed rotating images are created on independent workstation and reviewed on the computer. A localization and attenuation correction CT is performed in conjunction with the PET scan. Blood glucose level equals 101. SCAN: Initial Scan FINDINGS: SKULL BASE AND NECK: No suspicious hypermetabolic uptake. CHEST, MEDIASTINUM, AND HILAR REGION: Surgical changes from bilateral mastectomies and bilateral milo st subpectorally chief operator placement. Artifact from chief operator is noted. Anterior fat stranding and skin thickening bilaterally is present. In the left breast there is a focus of hypermetabolic uptake michelle esponding to more confluent soft tissue density. Organizing infection would BE favored. Neoplasm unli bret given history. No suspicious enlarged hypermetabolic axillary lymph nodes bilaterally. ABDOMEN AND PELVIS: Normal excretion is present. No areas of abnormal hypermetabolic uptake. OSSEOUS STRUCTURES: No areas of abnormal hypermetabolic uptake. OTHER CT: Nasal septal deviation is present. Low lung volumes and mild cardiomegaly. Gallbladder is surgically absent. Anteverted uterus. Scattered pelvic phleboliths. IMPRESSION: Only area of abnormal hypermetabolic uptake is left breast anterior subcutaneous tissue p resumed postinflammatory related to recent surgery. Correlate clinically. No hypermetabolic masses or lymph nodes to suggest metastatic disease.
== END | disposition home or self-care (01) ==
LOC: RADPETMAIN 16:24
PROVIDERS: ATTEND Surgery
DX: C50.912 Malignant neoplasm of unspecified site of left female breast (principal); Z85.3 Personal history of malignant neoplasm of breast; Z90.13 Acquired absence of bilateral breasts and nipples
CPT/HCPCS: 78815; A9552

== ENCOUNTER → 2020-11-13 | Outpatient (CLI) | payer OTHER ==
--- NOTE | 2020-11-13 15:45 | P.PN ---
Progress Note - Text Progress Note Date: 11/13/20 Lucero is status post bilateral mastectomy with left sentinel node biopsy. Right breast did not reveal any tumor. Left breast reveal complete excision of tumor. 3 axillary nodes removed all had tumor present. I've discussed this with medical oncology/Dr. Corona and Dr. Rascon. I have talked to the patient about completion axillary dissection. She would like to avoid this if possible. Dr. Ma feels that she can be treated with chemotherapy at this point and this is going to be started tomorrow. Of concern is the fact that the patient called today stating that she saw the plastic surgeon yesterday's scope was removed from both breasts and from the left side she began having some drainage. She did have a low-grade fever today. Physical examination: Temperature: 99.1 Lungs: Clear Heart: Regular rate and rhythm Incision: Clean and dry, Incision left breast some necrotic tissue at the edges with some minimal drainage; there is no erythema of the chest wall Impression/Plan: 1. Bilateral mastectomy with subpectoral implant placement healing well or evidence of infection 2. Axillary node biopsy left axilla 3 nodes positive for tumor 3. Start chemotherapy in two days 4. Appointment with medical oncology 5. Pet scan done last week 6. Debridement of the necrotic tissue edges in the left chest wall 7. Call Dr. Siddiqui tomorrow The area of concern in the left breast was prepped, sharp debridement of the area of necrosis was performed. Reapproximation of the tissue was then done using a 3-0 nylon suture. The patient tolerated this procedure in stable condition.
[2020-11-13 16:38] VITALS: BP 133/73; PULSE 78; RESP 16; TEMP 99.1
== END ==
LOC: WWCWWP 15:04
PROVIDERS: ATTEND Surgery
DX: D49.3 Neoplasm of unspecified behavior of breast (principal); Z90.13 Acquired absence of bilateral breasts and nipples

== ENCOUNTER → 2021-04-15 | Outpatient (CLI) | payer OTHER ==
--- NOTE | 2021-04-16 08:57 | BD ---
EXAMINATION TYPE: Axial Bone Density DATE OF EXAM: 04/15/2021 COMPARISON: NONE CLINICAL HISTORY: Height: 63.7 IN Weight: 226 LBS RISK FACTORS HISTORY OF: Spine Fracture: L SPINE FRACTURE AGE 23 Family History of Osteoporosis: YES MOTHER Active: YES Postmenopausal woman: NOT YET If Premenopausal, do you have irregular periods: IRREGULAR LMP 12/06 Take estrogen and/or progesterone medications: NOT NOW How long: TOOK CONTROL FROM AGE [age] MEDICATIONS: Additional Medications: VIT D, OMEPRAZOLE, B SUPPLEMENTS, EFFEXOR,LETRAZOLE Additional History: BREAST CANCER WITH CHEMO AND RADIATION EXAM MEASUREMENTS: Bone mineral densitometry was performed using the [employer] System. PT HAD L SPINE FX AGE 23 Bone mineral density about the R hip (g/cm2): 1.153 Bone mineral density about the L hip (g/cm2): 1.076 T Score values are as follows: -----R Neck: 0.8 -----L Neck: 0.3 -----R Total: 0.9 -----L Total: 1.3 Bone mineral density BASELINE Bone mineral density about the R Wrist (g/cm2): 0.805 T Score values are as follows: -----Dist. R+U: 3.8 -----Prox. R+U: 1.3 -----Radius total: 2.2 Bone mineral density BASELINE IMPRESSION: Normal (Values between +1 and -1 indicate normal bone mass). Consider repeating this study in 5 year s or sooner if there is some new clinical indication. NOTE: T-SCORE=SD OF THE YOUNG ADULT MEAN.
== END | disposition home or self-care (01) ==
LOC: RADBDWWP 09:34
PROVIDERS: ATTEND Internal Medicine Hematology & Oncology
DX: Z13.820 Encounter for screening for osteoporosis (principal); Z85.3 Personal history of malignant neoplasm of breast; Z92.3 Personal history of irradiation; Z92.21 Personal history of antineoplastic chemotherapy; Z79.890 Hormone replacement therapy
CPT/HCPCS: 77080

== ENCOUNTER → 2021-09-20 | Outpatient (CLI) | payer OTHER ==
--- NOTE | 2021-09-23 12:51 | USB ---
Reason for Exam: Clinical finding. Patient History: Menarche at age 13. First Full-Term at age 31. Late child-bearing (after 29). Hormonal Contraceptives for 12 years from age 20 until age 31. Risk Values: Crystal 5 year model risk: 1.3%. NCI Lifetime model risk: 10.8%. Technique: Method: Whole Breast Handheld. Prior Study Comparison: 11/17/2012 Bilateral Screening Mammogram, [facility]. 11/24/2012 Right Diagnostic Mammogram, [facility]. Findings: The whole breast of both breasts and the axilla of both breasts were scanned. Whole bilateral breast ultrasound including evaluation of subareolar and axillary regions shows no concerning solid or cystic mass. Some subcutaneous edema is present bilaterally without suspicious focal fluid collection. No concerning axillary adenopathy. Bilateral subpectoral breast expanders are redemonstrated. Overall Assessment: Benign, BI-RAD 2 Management: Clinical Management of both breasts. Managed clinically symptoms of bilateral pain. Patient told the results at time of dictation. Electronically signed and approved by: Mike Anglin M.D.
== END | disposition home or self-care (01) ==
LOC: RADUSWWP 10:30
PROVIDERS: ATTEND Internal Medicine
DX: C50.312 Malignant neoplasm of lower-inner quadrant of left female breast (principal)

== ENCOUNTER 2021-09-24 07:10 | Day surgery (SDC) | payer OTHER ==
[2021-09-20 11:41] VITALS: BMI 39.6
[~2021-09-24 07:10] MED LIST changes: +HYDROmorphone 0.5 MG/0.5 ML SYRINGE IVP PRN; +LACTATED RINGERS 1,000 ML IV SCH; +LIDOCAINE 1% (10MG/ML) FOR IV START INTRADERMA PRN; -MIDAZOLAM 2 MG/2 ML VIAL IV PRN; +SCOPOLAMINE 1 MG/72 HR PATCH TRANSDERM ONE; -SCOPOLAMINE 1.5MG/72HR PATCH TRANSDERM ONE
[2021-09-24] MEDS ORDERED: ePHEDrine 50 MG/ML 1 ML VIAL ONE (08:33)
[2021-09-24] MEDS ORDERED: SUCCINYLCHOLINE CHLORIDE 200 MG/10 ML VIAL IV ONE (08:33)
[2021-09-24] MEDS ORDERED: MIDAZOLAM 2 MG/2 ML VIAL ONE (08:33)
[2021-09-24] MEDS ORDERED: PHENYLEPHRINE-0.9% NACL SYG 1,000 MCG/10 ML SYRINGE ONE (08:33)
[2021-09-24] MEDS ORDERED: GLYCOPYRROLATE 0.2 MG/ML 2 ML VIAL ONE (08:33)
[2021-09-24] MEDS ORDERED: fentaNYL (PF) 50 MCG/ML 2 ML AMP ONE (08:33)
[2021-09-24] MEDS ORDERED: NEOSTIGMINE 1 MG/ML 10 ML VIAL ONE (08:33)
[2021-09-24] MEDS ORDERED: LIDOCAINE 2% INJ 20 MG/ML (2 ML VIAL) ONE (08:33)
[2021-09-24] MEDS ORDERED: ROCURONIUM 10 MG/ML (5 ML VIAL) IV ONE (08:33)
[2021-09-24] MEDS ORDERED: PROPOFOL 10 MG/ML 20 ML VIAL IV ONE (08:33)
[2021-09-24] MEDS ORDERED: SODIUM CHLORIDE 0.9% 50 ML with ceFAZolin 2,000 MG IV ONE ×2 (08:38)
[2021-09-24] MEDS ORDERED: LACTATED RINGERS 1,000 ML IV ONE (09:45)
[2021-09-24 10:55] VITALS: TEMP 97.2
[2021-09-24 11:05] VITALS: RESP 16
[2021-09-24] MEDS ORDERED: HYDROcodone/APAP 5-325MG 1 EACH TAB ONE (12:51)
[2021-09-24 13:25] VITALS: BP 138/81; PULSE 83
--- NOTE | 2021-09-25 14:06 | OP ---
OPERATIVE REPORT PREOPERATIVE DIAGNOSES: 1. Acquired absence right and left breast. 2. Personal history of breast cancer, left breast. 3. Status post bilateral mastectomy. 4. 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 5. Acquired loss left breast inframammary fold. POSTOPERATIVE DIAGNOSES: 1. Acquired absence right and left breast. 2. Personal history of breast cancer, left breast. 3. Acquired deformity of right and left reconstructed breast. 4. Personal history of bilateral nephrectomy. 5. Acquired loss left breast inframammary fold. OPERATIVE PROCEDURES: 1. Replacement of right breast tissue bone plant supervisor with right breast implant for breast reconstruction. 2. Revision right reconstructed breast. 3. Replace left breast tissue bone plant supervisor with silicone breast implant for left breast reconstruction. 4. Revision left reconstructed breast. 5. Reconstruction of left breast inframammary fold via local advancement flap, 66 square cm. 6. Implantation of reconstructed graft for left breast reconstruction. OPERATIVE INDICATIONS: The patient is a 51-year-old female who has undergone bilateral mastectomy procedures with immediate breast reconstruction with tissue expanders with treatment of left breast cancer. She did require postprocedure radiation therapy, which delayed her expansion for time. She has completed subsequent expansion, is returning to surgery today for second stage of breast reconstruction. The patient has acquired significant deformities of the reconstructed breast due to the surgery and radiation treatment as well as loss of inframammary fold and malposition in the left reconstructed breast. She understands potential risks and complications of today's surgery and has requested I perform the surgery. OPERATIVE PROCEDURE SUMMARY: The patient was seen in the preoperative area. Markings were made. Procedure was reviewed. All questions were answered. She was transported to the operating room where she was placed in supine position following induction of general endotracheal anesthesia. The patient was prepped and draped in usual fashion. The incisions made on the right side. Following markings were placed preoperatively in transverse fashion dividing skin in full-thickness fashion with a 10-blade scalpel and then using cautery to divide subcutaneous tissue layers until identifying the muscle flap tissue layer. Skin and subcutaneous tissue flap was then elevated off the muscle flap layer. Extensive dissection was required to release contour irregularities and allow for optimal postop draping with the implant. Once this was completed, an incision was made through the muscle flap layer, low-transverse offsetting from the skin level incision. The bone plant supervisor was exposed and removed intact. The cavity appeared normal with no granulation tissue, no exudates. A complete capsulotomy incision was made where the capsule joined the chest wall and then multiple cruciate incisions through the expansion capsule were performed with cautery. Hemostasis maintained with cautery. Site was irrigated. Excellent hemostasis was present. Site was packed with multiple laparotomy sponges. Attention was turned towards the left side. The scar on the left side was different thick. The scar was outlined in elliptical fashion and excised with a 10-blade scalpel. Sent the scar tissue to pathology. The subcutaneous tissue layers divided with cautery until reaching the muscle flap layer. Skin, subcutaneous tissue flaps were then elevated off the muscle flap layer. Extensive dissection was required due to contour irregularities and also optimized draping when the implants placed. This dissection completely mastectomy skin flaps from the muscle flap layer tissue. Incision was then made through the expansion capsule, low-transverse with cautery, removing the bone plant supervisor intact. The capsule layer was tight and thickened. A complete capsulotomy incision was made where the capsule joined the chest wall and multiple cruciate incisions through the capsule. Through the lower capsulotomy incision, skin subcutaneous tissue flap was elevated for inframammary fold reconstruction. The flap measured 22 cm transverse by 3 cm vertically and was dissected with cautery in all fascial planes. Once I dissected, the site was irrigated and hemostasis optimized with cautery. Excellent hemostasis obtained. The inframammary fold flap was advanced cephalad and secured to rib periosteal tissues using interrupted 2-0 Vicryl sutures in several discrete locations. With this completed, all temporary breast implant sizers were opened on the field. Several sizes were evaluated and ultimately 650 mL sizer appeared optimal on both sides. The patient was seated up position and incision temporary closed with mg. She has returned to supine position. Temporary mg removed. Sizer was removed. Each cavity was irrigated, inspected for hemostasis, which was optimal. From placement of the sizer on the left, it was clear the muscle flap tissue could not be approximated with the implant. Therefore, at this point SurgiMend reconstructive graft was opened on the field and revitalized with room temperature saline. The graft measured 10 x 15 cm, was thin and meshed. The graft was pre-stretched and placed into the reconstructive cavity, secured to tissue just above the inframammary fold on the left side with interrupted 3-0 Vicryl sutures. Then the implant opened on the field. Both implants measured 615 mL and from the [facility] SoftTouch breast implant model, reference #SSX-615. The left- sided serial number was [id number] and the right-sided serial #[id number]. The left implant was placed first. Gloves were changed prior to opening the implant. The implant was irrigated with saline and placed directly into the Elliott funnel, inserted in the reconstructive cavity through the Elliott funnel. No-touch technique. The SurgiMend was then advanced over the inferior pole of the implant in the inferior sling type formation and secured the muscle flap tissue using interrupted and short running 3- 0 Vicryl sutures, complete coverage obtained on left side. The right-sided implant was now opened on the field, again irrigated with saline, placed into the Elliott funnel via no-touch technique, inserted in the reconstructive cavity, but no obstruction of the implant. The muscle flap tissue was directly approximated over the right-sided implant and this was completed with interrupted and short running 3-0 Vicryl sutures. Surgical field is now cleansed with saline and the wound was irrigated, hemostasis was excellent. The final closure completely approximated deep dermis using inverted interrupted 4-0 Monocryl and completing superficial dermal epidermal closure with running 5-0 Prolene. Surgical field was cleansed with saline, dried and postoperative bandage was placed using 4x4s, Kerlix, gauze, secured with 3 Medipore tape in position, size 5 mammary support. The patient was then awakened from her anesthetic, extubated, and transferred to recovery room in good condition stable vital signs. There were no complications. ESTIMATED BLOOD LOSS: 50 mL. MMODL / IJN: [id number] /
== END 2021-09-24 13:37 | disposition home or self-care (01) ==
LOC: OR 07:10
PROVIDERS: ATTEND Plastic Surgery
DX: N65.0 Deformity of reconstructed breast (principal); Z85.3 Personal history of malignant neoplasm of breast; Z90.13 Acquired absence of bilateral breasts and nipples; L90.5 Scar conditions and fibrosis of skin; L85.9 Epidermal thickening, unspecified; Z90.5 Acquired absence of kidney; Z92.3 Personal history of irradiation; K21.9 Gastro-esophageal reflux disease without esophagitis; Z87.891 Personal history of nicotine dependence
CPT/HCPCS: 88305; 11970; 19380; J2250; J0330; J1100; J2710; J2405; J0690; J3010; J2370; J2704; J1170; J2001

== ENCOUNTER → 2023-05-11 | Outpatient (CLI) | payer BC ==
--- NOTE | 2023-05-11 13:46 | BD ---
EXAMINATION TYPE: Axial Bone Density DATE OF EXAM: 05/11/2023 CLINICAL HISTORY: 53 years old Female. ICD-10 CODE: C50.312 BREAST CANCER Height: Weight: FRAX RISK QUESTIONS: Family History (Parent hip fracture): yes History of Fracture in Adulthood: yes 3. Menopause before 45: no, at 50 yrs old RISK FACTORS HISTORY OF: hx of br cancer and radiation, Spine Fracture: yes, lumbar at age 23 MEDICATIONS: reflux vit b, effexor, letrozole vit d3, EXAM MEASUREMENTS: Bone mineral densitometry was performed using the Vivino System. fractures of multiple vertebral bodies spine not scanned. Bone mineral density about the R hip (g/cm2): 1.052 Bone mineral density about the L hip (g/cm2): 1.129 T Score values are as follows: -----R Neck: -0.1 -----L Neck: -0.3 -----R Total: 0.4 -----L Total: 1.0 Z Score values are as follows: -----R Neck: 0.1 -----L Neck: -0.1 -----R Total: 0.1 -----L Total: 0.7 Bone mineral density has: Decreased -4.6% since study of: 04.15.2021 Bone mineral density about the R Wrist (g/cm2): 0.683 T Score values are as follows: -----Dist. R+U: 2.8 -----Prox. R+U: 0.5 -----Radius total: 0.9 Z Score values are as follows: -----Dist. R+U: 3.2 -----Prox. R+U: 0.8 -----Radius total: 1.2 Bone mineral density has: Decreased -7.2% since study of: 04.15.2021 FRAX%s: The graph provided illustrates a 15.8% chance for a major osteoporotic fx and a 0.2% chance f or the hips probability for fx in 10 years time. IMPRESSION: Normal (Values between +1 and -1 indicate normal bone mass). Consider repeating this study in 5 year s or sooner if there is some new clinical indication. NOTE: T-SCORE=SD OF THE YOUNG ADULT MEAN.
== END ==
LOC: RADBDWWP 11:03
PROVIDERS: ATTEND Internal Medicine Hematology & Oncology
DX: C50.312 Malignant neoplasm of lower-inner quadrant of left female breast (principal); K12.30 Oral mucositis (ulcerative), unspecified; F32.A Depression, unspecified; Z71.3 Dietary counseling and surveillance; Z78.0 Asymptomatic menopausal state
CPT/HCPCS: 77080